=== PATIENT | female | born 1965 | race Caucasian/White ===

== ENCOUNTER 2018-03-28 07:04 | Day surgery (SDC) | payer OTHER ==
[2018-03-28 07:59] VITALS: BMI 20.1
[2018-03-28 08:48] VITALS: TEMP 97.6
[2018-03-28 09:18] VITALS: BP 99/47; PULSE 63
--- NOTE | 2018-03-29 17:10 | PATH ---
Surgical Pathology Report Patient Name: JOSÉ LUIS HAND [facility]. Rec. #: [id number] /Age/Gender: 1965 (Age: 53) / F Account: [id number] Location: U-ENDOSCOPY Taken: 03/28/2018 Received: 03/28/2018 Reported: 03/29/2018 Physicians: Randall Bernardo M.D. Specimen(s) Received BX DESCENDING COLON POLYP Clinical History Screening Postoperative diagnosis: Colon polyp Final Diagnosis DESCENDING COLON POLYP, BIOPSY: COLONIC MUCOSA WITH SURFACE HYPERPLASTIC CHANGE. Electronically Signed Josh Christianson M.D. Gross Description Received in formalin, labeled "descending colon biopsy" are 2 zendejas, irregular portions of soft tissue averaging 0.2 cm. in greatest dimension. The specimens are submitted in toto in one cassette. /03/28/201803/28/2018
== END 2018-03-28 09:18 | disposition home or self-care (01) ==
LOC: JASU-ENDO 07:04
PROVIDERS: ATTEND Internal Medicine Gastroenterology
PROC: 0DBM8ZX Excision of Descending Colon, Via Natural or Artificial Opening Endoscopic, Diagnostic (ICD-10-PCS; principal; 2018-03-28 08:00)
DX: Z12.11 Encounter for screening for malignant neoplasm of colon (principal); D12.4 Benign neoplasm of descending colon; K64.8 Other hemorrhoids
CPT/HCPCS: 84703; 88305-TC

== ENCOUNTER 2023-10-25 04:36 | Day surgery (SDC) | payer OTHER ==
[2023-10-21 15:15] VITALS: BMI 22.8
[2023-10-25 08:32] VITALS: TEMP 98
[2023-10-25 09:00] VITALS: PULSE 71; RESP 14
[2023-10-25 09:02] VITALS: BP 102/65
== END 2023-10-25 09:17 | disposition home or self-care (01) ==
LOC: JASU-ENDO 04:36
PROVIDERS: ATTEND Internal Medicine Gastroenterology
PROC: 0DBC8ZX Excision of Ileocecal Valve, Via Natural or Artificial Opening Endoscopic, Diagnostic (ICD-10-PCS; 2023-10-25)
PROC: 0DBK8ZX Excision of Ascending Colon, Via Natural or Artificial Opening Endoscopic, Diagnostic (ICD-10-PCS; principal; 2023-10-25 08:00)
DX: Z12.11 Encounter for screening for malignant neoplasm of colon (principal); Z86.010 Personal history of colon polyps; D12.0 Benign neoplasm of cecum; D12.2 Benign neoplasm of ascending colon; K64.8 Other hemorrhoids
CPT/HCPCS: 88305-TC